=== PATIENT | male | born 1945 | race Two or more races ===

== ENCOUNTER 2020-11-12 09:03 | Observation (INO) | payer MEDICARE ==
[~2020-11-12] VITALS: Ht 170.2 cm; Wt 83.5 kg
--- NOTE | 2020-11-12 09:51 | PHYS DOC ---
Past Medical History Past Medical History: Diabetes-Type II Past Surgical History: Other Additional Past Surgical Histo: PROSTATE Smoking Status: Never Smoker Alcohol Use: None General Adult EDM: Chief Complaint: SHORTNESS OF BREATH HPI: HPI: Patient is a 74 year old who presented to ER for evaluation of productive cough, fever and chill, sore throat for 3 days. Patient just came back from [place]. Patient denies any abdominal pain, no nausea vomiting. Patient had Covid vaccine Vivek [employer] Vivek in August. Patient denies any chest pain. Patient has history of diabetic. He denies any history of COVID-19 infection. Review of Systems: Review of Systems: Constitutional: Positive fever or chills. [] Eyes: Denies change in visual acuity. [] HENT: Positive nasal congestion or sore throat. [] Respiratory: Positive cough or shortness of breath. [] Cardiovascular: Denies chest pain or edema. [] GI: Denies abdominal pain, nausea, vomiting, bloody stools or diarrhea. [] : Denies dysuria. [] Musculoskeletal: Denies back pain or joint pain. [] Integument: Denies rash. [] Neurologic: Denies headache, focal weakness or sensory changes. [] Endocrine: Denies polyuria or polydipsia. [] Lymphatic: Denies swollen glands. [] Psychiatric: Denies depression or anxiety. [] Heart Score: C/O Chest Pain: N/A Risk Factors: Risk Factors: DM, Current or recent (<one month) smoker, HTN, HLP, family history of CAD, obesity. Risk Scores: Score 0 - 3: 2.5% MACE over next 6 weeks - Discharge Home Score 4 - 6: 20.3% MACE over next 6 weeks - Admit for Clinical Observation Score 7 - 10: 72.7% MACE over next 6 weeks - Early Invasive Strategies Current Medications: Current Medications Medications (Trade) Dose Ordered Sig/Soco Start Time Stop Time Status Last Admin Dose Admin Acetaminophen (Tylenol) 1,000 mg 1X ONCE 11/12/20 09:30 11/12/20 09:31 UNV Ibuprofen (Motrin) 800 mg 1X ONCE 11/12/20 09:30 11/12/20 09:31 UNV Sodium Chloride 1,000 ml @ 1,000 mls/hr 1X ONCE 11/12/20 09:45 11/12/20 10:44 UNV Physical Exam: PE: Constitutional: Well developed, well nourished, no acute distress, non-toxic appearance. [] HENT: Normocephalic, atraumatic, bilateral external ears normal, oropharynx moist, no oral exudates, nose normal. Oral pharyngeal is erythema, no exudation. Eyes: PERRLA, EOMI, conjunctiva normal, no discharge. [] Neck: Normal range of motion, no tenderness, supple, no stridor. [] Cardiovascular:Heart rate regular rhythm, no murmur [] Lungs & Thorax: Bilateral breath sounds clear to auscultation [] Abdomen: Bowel sounds normal, soft, no tenderness, no masses, no pulsatile masses. [] Skin: Warm, dry, no erythema, no rash. [] Back: No tenderness, no CVA tenderness. [] Extremities: No tenderness, no cyanosis, no clubbing, ROM intact, no edema. [] Neurologic: Alert and oriented X 3, normal motor function, normal sensory function, no focal deficits noted. [] Psychologic: Affect normal, judgement normal, mood normal. [] Current Patient Data: Labs: Laboratory Tests Test 11/12/20 09:35 11/12/20 09:55 11/12/20 10:50 Influenza Type A Antigen Negative Influenza Type B Antigen Negative White Blood Count 7.6 x10^3/uL Red Blood Count 4.05 x10^6/uL Hemoglobin 13.0 g/dL Hematocrit 37.5 % Mean Corpuscular Volume 93 fL Mean Corpuscular Hemoglobin 32 pg Mean Corpuscular Hemoglobin Concent 35 g/dL Red Cell Distribution Width 12.8 % Platelet Count 183 x10^3/uL Neutrophils (%) (Auto) 82 % Lymphocytes (%) (Auto) 8 % Monocytes (%) (Auto) 10 % Eosinophils (%) (Auto) 1 % Basophils (%) (Auto) 0 % Neutrophils # (Auto) 6.2 x10^3/uL Lymphocytes # (Auto) 0.6 x10^3/uL Monocytes # (Auto) 0.8 x10^3/uL Eosinophils # (Auto) 0.0 x10^3/uL Basophils # (Auto) 0.0 x10^3/uL Sodium Level 136 mmol/L Potassium Level 3.8 mmol/L Chloride Level 99 mmol/L Carbon Dioxide Level 26 mmol/L Anion Gap 11 Blood Urea Nitrogen 16 mg/dL Creatinine 1.0 mg/dL Estimated GFR (Cockcroft-Gault) 73.0 BUN/Creatinine Ratio 16 Glucose Level 245 mg/dL Lactic Acid Level 1.8 mmol/L Calcium Level 8.6 mg/dL Magnesium Level 1.8 mg/dL Total Bilirubin 0.4 mg/dL Aspartate Amino Transf (AST/SGOT) 20 U/L Alanine Aminotransferase (ALT/SGPT) 16 U/L Alkaline Phosphatase 76 U/L Troponin I Quantitative < 0.017 ng/mL ZO-Qea-W-Type Natriuretic Peptide 578 pg/mL Total Protein 6.9 g/dL Albumin 2.2 g/dL Albumin/Globulin Ratio 0.5 SARS-CoV-2 RNA (SHABNAM) Negative Group A Streptococcus Rapid Negative Current Medications Medications (Trade) Dose Ordered Sig/Soco Route PRN Reason Start Time Stop Time Status Last Admin Dose Admin Acetaminophen (Tylenol) 1,000 mg 1X ONCE PO 11/12/20 10:30 11/12/20 10:31 DC 11/12/20 10:35 Ibuprofen (Motrin) 800 mg 1X ONCE PO 11/12/20 10:30 11/12/20 10:31 DC 11/12/20 10:30 Sodium Chloride 1,000 ml @ 1,000 mls/hr 1X ONCE IV 11/12/20 10:30 11/12/20 11:29 DC 11/12/20 10:41 Ceftriaxone Sodium (Rocephin) 1 gm 1X ONCE IVP 11/12/20 10:30 11/12/20 10:31 DC 11/12/20 10:37 Azithromycin 250 ml @ 250 mls/hr 1X ONCE IV 11/12/20 10:30 11/12/20 11:29 DC 11/12/20 10:37 Vital Signs: Vital Signs Date Time Temp Pulse Resp B/P (MAP) Pulse Ox O2 Delivery O2 Flow Rate FiO2 11/12/20 09:21 101.4 88 18 145/70 (95) 94 Room Air 101.4 EKG: EKG: EKG was done at 939, heart rate of 87 bpm, sinus rhythm, no ST segment elevation. Atrial premature complexes Radiology/Procedures: Radiology/Procedures: [][facility] [address] [place] [address] IMAGING REPORT Signed PATIENT: IMANI FLORES ACCOUNT: [id number] : 1945 LOCATION: ER AGE: 74 SEX: M EXAM STATUS: PRE ER ORD. PHYSICIAN: RENÉ JOHNSTON DO REASON: SOA, COUGH, FEVER PROCEDURE: CHEST AP ONLY INDICATION: Reason: SOA, COUGH, FEVER / Spl. Instructions: / History: COMPARISON: None. FINDINGS: Single view of chest obtained. Cardiac mediastinal silhouette unremarkable. Patchy opacities within the right lung most severe at the right upper lung. Degenerative changes of the spine. IMPRESSION: * Patchy opacities within the right lung which could be secondary to infiltrate in the area but follow-up could be obtained to ensure that this appropriately resolves to exclude any alternative neoplastic cause. Electronically signed by: Kait Gomez MD (11/12/2020 9:49 AM) [id number] DICTATED and SIGNED BY: KAIT GOMEZ MD DATE: 11/12/20 [id number] Course & Med Decision Making: Course & Med Decision Making Pertinent Labs and Imaging studies reviewed. (See chart for details) Patient is a 74-year-old male who presented to ER due to cough, fever, chills, trouble breathing. Chest x-ray showed right side patchy infiltration consistent with pneumonia. Patient be admitted to hospital for further evaluation and treatment. Dragon Disclaimer: Dragon Disclaimer: This electronic medical record was generated, in whole or in part, using a voice recognition dictation system. Departure Departure Impression: Primary Impression: Pneumonia Additional Impression: Person under investigation for COVID-19 Disposition: 09 ADMITTED INPATIENT Admitting Physician: AGATA (Dr. Yun) Condition: STABLE RENÉ JOHNSTON DO Nov 12, 2020 09:51
--- NOTE | 2020-11-12 09:52 | RAD ---
INDICATION: Reason: SOA, COUGH, FEVER / Spl. Instructions: / History: COMPARISON: None. FINDINGS: Single view of chest obtained. Cardiac mediastinal silhouette unremarkable. Patchy opacities within the right lung most severe at th e right upper lung. Degenerative changes of the spine. IMPRESSION: * Patchy opacities within the right lung which could be secondary to infiltrate in the area but foll ow-up could be obtained to ensure that this appropriately resolves to exclude any alternative neoplas tic cause. Electronically signed by: Johan Doyle MD (11/12/2020 9:49 AM) [id number]
[2020-11-12] MEDS ORDERED: AZITHRMYCN 500MG IVPB FOR OMNI 250 ML IV ONE (10:30)
[2020-11-12] MEDS ORDERED: IBUPROFEN 400 MG TABLET. PO ONE (10:30)
[2020-11-12] MEDS ORDERED: IV NORMAL SALINE 1000ML BAG 1,000 ML IV ONE (10:30)
[2020-11-12] MEDS ORDERED: ACETAMINOPHEN 500 MG TABLET PO ONE (10:30)
[2020-11-12] MEDS ORDERED: cefTRIAXone IV Push 1 GM VIAL. IVP ONE (10:30)
[2020-11-12 10:46] LABS: BASO % 0 % (0-3); EOS % 1 % (0-3); HEMATOCRIT 37.5 % (39.0-53.0); LYMPH # 0.6 x10^3/uL (1.0-4.8); LYMPH % 8 % (24-48); MEAN CORPUSCULAR HEMOGLOBIN 32 pg (25-35); MEAN CORPUSCULAR HGB CONC 35 g/dL (31-37); MEAN CORPUSCULAR VOLUME 93 fL (79-100); MONO # 0.8 x10^3/uL (0.0-1.1); MONO % 10 % (0-9); NEUT # 6.2 x10^3/uL (1.8-7.7); NEUT % 82 % (31-73); PLATELET COUNT 183 x10^3/uL (140-400); RED BLOOD COUNT 4.05 x10^6/uL (4.30-5.70); RED CELL DISTRIBUTION WIDTH 12.8 % (11.5-14.5); WHITE BLOOD COUNT 7.6 x10^3/uL (4.0-11.0)
[2020-11-12 10:51] LABS: CALCIUM 8.6 mg/dL (8.5-10.1); POTASSIUM 3.8 mmol/L (3.5-5.1)
[2020-11-12 10:57] LABS: ALBUMIN 2.2 g/dL (3.4-5.0); ALBUMIN/GLOBULIN RATIO 0.5 (1.0-1.7); MAGNESIUM 1.8 mg/dL (1.8-2.4); TOTAL BILIRUBIN 0.4 mg/dL (0.2-1.0); TOTAL PROTEIN 6.9 g/dL (6.4-8.2)
[2020-11-12 11:18] LABS: INFLUENZA A PATIENT NEGATIVE (NEGATIVE); INFLUENZA B PATIENT NEGATIVE (NEGATIVE)
[2020-11-12] MEDS: IPRATRPIUM/ALBUTEROL 0.5/2.5MG 3 ML NEBU. NEB SCH ×3 (12:41→21:31)
--- NOTE | 2020-11-12 12:44 | HP ---
ADMIT DATE: 11/12/2020 CHIEF COMPLAINT: Shortness of breath. HISTORY OF PRESENT ILLNESS: The patient is a pleasant 74-year-old male who presented to the ER today with shortness of breath. This has been occurring for 3 days. He has associated weakness. He is increasing his home meds but that did not work. It is worse with moving, better with sitting still. He had vaccine for COVID-19 (he got the Vivek and Vivek vaccine). He then went to [place] for a few days, now he is back with the above symptoms. We did x-rays, he has got some pneumonia. I discussed the case with ER physician. We are going to admit the patient, give him IV antibiotics, breathing treatments and oxygen. PAST MEDICAL HISTORY: Diabetes and prostate issues. ALLERGIES: None. FAMILY HISTORY: Prostate issues. SOCIAL HISTORY: Does not drink, smoke or take drugs. He is retired. MEDICATIONS: Reviewed. Please refer to the MRAD. REVIEW OF SYSTEMS: GENERAL: No history of weight change, weakness or fevers. SKIN: No bruising, hair changes or rashes. EYES: No blurred, double or loss of vision. NOSE AND THROAT: No history of nosebleeds, hoarseness or sore throat. HEART: No history of palpitations, chest pain. LUNGS: He complains of shortness of breath. GASTROINTESTINAL: Denies changes in appetite, nausea, vomiting, diarrhea or constipation. GENITOURINARY: No history of frequency, urgency, hesitancy or nocturia. NEUROLOGIC: Denies history of numbness, tingling, tremor or weakness. PSYCHIATRIC: No history of panic, anxiety or depression. ENDOCRINE: No history of heat or cold intolerance, polyuria or polydipsia. EXTREMITIES: Denies muscle weakness, joint pain, pain on walking or stiffness. PHYSICAL EXAMINATION: VITALS: Within normal limits and are stable. GENERAL: No apparent distress. Alert and oriented. HEENT: Normal cephalic atraumatic, external auditory canals are patent. EYES: Extraocular muscles are intact, pupils are equally round and reactive to light and accommodation. MUSCULOSKELETAL: Well developed, well nourished, good range of motion. ENDOCRINE: No thyromegaly was palpated. LYMPHATICS: No cervical chain or axillary nodes were noted. HEMATOPOIETIC: No bruising. NECK: Supple, no JVD, no thyromegaly was noted. LUNGS: He has got decreased breath sounds with some wheezing. HEART: RRR, S1, S2 present. Peripheral pulses intact, no obvious murmurs were noted. ABDOMEN: Soft, nontender. Positive bowel sounds, no organomegaly, normal bowel sounds. EXTREMITIES: Without any cyanosis, clubbing, or edema. Pedal pulses intact, Homans sign is negative. NEUROLOGIC: Normal speech, normal tone. A and O x 3, moves all extremities, no obvious focal deficits. PSYCHIATRIC: Normal affect, normal mood. Stable. SKIN: No ulcerations or rashes, good skin turgor, no jaundice. VASCULAR: Good capillary refill, neurovascular bundle appears to be intact. LABORATORY DATA: White count 7. Chest x-ray shows right-sided infiltrate. ASSESSMENT AND PLAN: Pneumonia. The patient has been admitted. We will start IV antibiotics, DuoNebs, oxygen, home meds, DVT prophylaxis. RANDY/SEDA DR: [place] TID: [id number]
[2020-11-12 15:00] VITALS: BP 131/64
--- NOTE | 2020-11-12 16:00 | EKG ---
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
[2020-11-12] MEDS ORDERED: ATOR10TA60 PO (17:18)
[2020-11-12] MEDS ORDERED: INSU100V13 SQ (17:18)
[2020-11-12] MEDS ORDERED: INSU100V6 SQ (17:18)
[2020-11-12] MEDS ORDERED: METF10007 PO (17:18)
[2020-11-12] MEDS ORDERED: LISI-517 PO (17:18)
[2020-11-12] MEDS ORDERED: OXYB10TA26 PO (17:18)
[2020-11-12] MEDS ORDERED: DEXTROSE 50% 25 GM / 50ML DISP.SYRIN. IV PRN (17:30)
[2020-11-12] MEDS: INSULIN LISPRO 300 UNITS/3 ML VIAL. SQ SCH (17:45)
[2020-11-12 19:48] VITALS: BP 116/57
[2020-11-12] MEDS ORDERED: INSULIN GLARGINE SYRINGE. SQ SCH (21:00)
[2020-11-12] MEDS ORDERED: ENOXAPARIN 40 MG/0.4 ML SYRINGE. SQ SCH (21:00)
[2020-11-12 23:55] VITALS: BP 120/58
[2020-11-13 03:08] VITALS: BP 114/51
[2020-11-13 07:00] VITALS: BP 124/59
[2020-11-13] MEDS: IPRATRPIUM/ALBUTEROL 0.5/2.5MG 3 ML NEBU. NEB SCH ×2 (07:37→11:07)
[2020-11-13] MEDS ORDERED: metFORMIN 500 MG TABLET PO SCH (08:00)
[2020-11-13] MEDS ORDERED: LISINOPRIL 5 MG TABLET. PO SCH (09:00)
[2020-11-13] MEDS ORDERED: cefTRIAXone IV Push 1 GM VIAL. IVP SCH (09:00)
[2020-11-13] MEDS ORDERED: OXYBUTYNIN CHLORIDE 5 MG TABLET PO SCH (09:00)
[2020-11-13] MEDS ORDERED: ATORVASTATIN CALCIUM 10 MG TABLET. PO SCH (09:00)
[2020-11-13] MEDS: INSULIN LISPRO 300 UNITS/3 ML VIAL. SQ SCH ×2 (10:00→12:46)
[2020-11-13] MEDS ORDERED: AMOX1TAB61 PO (10:24)
[2020-11-13 11:00] VITALS: BP 118/62
[2020-11-13] MEDS ORDERED: AZITHROMYCIN 500 MG in IV NORMAL SALINE 250ML 250 ML IV SCH (11:00)
--- NOTE | 2020-11-13 11:33 | DS ---
DATE OF DISCHARGE: 11/13/2020 ADMISSION DIAGNOSIS: Pneumonia. DISCHARGE DIAGNOSIS: Resolving pneumonia. HOSPITAL COURSE: The patient is a pleasant elderly male who presented with pneumonia. We admitted the patient, started IV antibiotics, breathing treatments, oxygen, continued his home meds, did some physical therapy. Basically over the past couple of days, he returned to his baseline. Today, I saw and examined him. He wants to go home. I plan to discharge. I gave him prescription for Augmentin 875 p.o. b.i.d. for a week. DISPOSITION: Home. ACTIVITY: As tolerated. DIET: Low sodium. MEDICATIONS: Augmentin 875 p.o. b.i.d. for 1 week. We will continue his home medications, which include atorvastatin 10 a day, Levemir 25 at bedtime, Humalog 10 with meals, lisinopril 5 a day, metformin 1000 daily, and oxybutynin 10 daily. TOTAL TIME: 34 minutes. RANDY/DOUG DR: [place] TID: [id number]
--- NOTE | 2020-11-13 11:58 | NUR ---
SW following. Discussed with RN, pt from home, room air, ada diet, COVID-19 negative. Discharge order for home with self care. RN advised no SW needs.
--- NOTE | 2020-11-13 14:38 | NUR ---
Discharge Note: JENNY HARRIS [facility] Discharge instructions and discharge home medications reviewed with Patient and a copy given. Prescriptions given to pt. Pt informed to follow up with his primary care physician. Discharge instructions communicated with patient through language line. All questions have been answered and understanding verbalized. The following instructions and handouts were given: Education given over PNA, HTN, and SOB. Discontinued IV line and telemetry. Patient discharged to Home with Self-Care.
[2020-11-13] MEDS ORDERED: LACTOBACILLUS RHAMNOSUS GG 1 CAPSULE. PO SCH (21:00)
--- NOTE | 2020-11-19 08:56 | NUR ---
azithromycin given on 11/12 at 1037 stopped on 11/12 at 1137 azithromycin given on 11/13 at 0959 stopped on 11/13 at 1059
== END 2020-11-13 14:50 | disposition home or self-care (01) ==
LOC: ER 09:03 → INTOOBSV 12:05 → ED HOLD 12:05 → 6 SOUTH 14:42
PROVIDERS: ADMIT Internal Medicine; ATTEND Internal Medicine
DX: J18.9 Pneumonia, unspecified organism (principal); Z20.822 Contact with and (suspected) exposure to COVID-19; E11.9 Type 2 diabetes mellitus without complications; Z79.899 Other long term (current) drug therapy; Z98.890 Other specified postprocedural states
CPT/HCPCS: 36415; 71045; 80053; 82962; 83605; 83735; 83880; 84484; 85025; 87070; 87804; 87880; 93005; 94640; 96365; 96366; 96372; 96375; 96376; 99285; G0378; J0456; J0696; J1650; J1815; J7030; J7050; U0003; U0005; G0379